=== PATIENT | female | born 1975 | race African-American/Black ===

== ENCOUNTER → 2018-08-29 | Emergency (ER) | payer OTHER ==
[~2018-08-29] MED LIST: ACETAMINOPHEN 1000 MG/100 ML VIAL (NON FORMULARY) IVPB ONE; ACETAMINOPHEN 500 MG TABLET (FP) PO ONE; ACETAMINOPHEN INJECTION 100 ML IVPB ONE; CEPHALEXIN MONOHYDRATE 500 MG CAPSULE (UD) ONE; CEPHALEXIN MONOHYDRATE 500 MG CAPSULE (UD) PO ONE; KETOROLAC TROMETHAMINE 30 MG/1 ML VIAL IVPUSH ONE
[2018-08-29 21:46] VITALS: BP 131/56; PULSE 56; TEMP 98.9; BMI 28.8
--- NOTE | 2018-08-29 21:48 | PDOC ---
Rapid Medical Evaluation Time Seen by Provider: 08/29/18 21:43 Medical Evaluation: Allergies Allergy/AdvReac Type Severity Reaction Status Date / Time No Known Allergies Allergy Verified 02/20/18 09:59 08/29/18 21:43 I have performed a brief in-person evaluation of this patient. The patient presents with a chief complaint of: Lower abd pain x 3 days. Seen in ED at [facility] and [facility] blood work and ua was normal. Was given pain meds and sent home. States pain getting worse. States she is on her menses and gets cramps but this is worse. +nausea. Taking motrin which does help but states meds cause her palpitations. S/p csection remotely. Last time sexually active 2 months ago. No h/o stds Pertinent physical exam findings:appears very uncomfortable in triage w/ diffuse ttp to lower abd I have ordered the following:labs The patient will proceed to the ED for further evaluation. Discharge Disposition - Diagnosis Abdominal pain Qualifiers: Abdominal location: lower abdomen, unspecified Qualified Code(s): R10.30 - Lower abdominal pain, unspecified - Referrals - Patient Instructions - Post Discharge Activity
[2018-08-29 22:13] LABS: BASO % 0.9 % (0-2.0); EOS % 0.5 % (0-4.5); HEMATOCRIT 28.9 % (32.4-45.2); HEMOGLOBIN 9.8 GM/dL (10.7-15.3); LYMPH % 10.6 % (8-40); MCH 27.7 pg (25.7-33.7); MCHC 33.9 g/dl (32.0-36.0); MEAN CELL VOLUME 81.9 fl (80-96); MEAN PLT VOLUME 8.5 fl (7.5-11.1); MONO % 5.8 % (3.8-10.2); NEUT % 82.2 % (42.8-82.8); PLATELET COUNT 258 K/MM3 (134-434); RBC 3.53 M/mm3 (3.60-5.2); RDW 16.5 % (11.6-15.6); WHITE BLOOD COUNT 8.9 K/mm3 (4.0-10.0)
[2018-08-29 22:48] LABS: ALBUMIN 3.3 g/dl (3.4-5.0); ALK PHOS 45 U/L (45-117); ANION GAP 9 MMOL/L (8-16); BLOOD UREA NITROGEN 12 mg/dL (7-18); CALCIUM 8.7 mg/dL (8.5-10.1); CHLORIDE 105 mmol/L (98-107); CO2 25 mmol/L (21-32); CREATININE 0.9 mg/dL (0.55-1.3); GLUCOSE,RANDOM 101 mg/dL (74-106); LIPASE 148 U/L (73-393); POTASSIUM 3.6 mmol/L (3.5-5.1); SGOT/AST 38 U/L (15-37); SGPT/ALT 58 U/L (13-61); SODIUM 139 mmol/L (136-145); TOT PROT 7.2 g/dl (6.4-8.2)
[2018-08-29 22:49] LABS: BILIRUBIN,TOTAL 0.2 mg/dL (0.2-1)
--- NOTE | 2018-08-29 23:10 | PDOC ---
History of Present Illness - General Chief Complaint: Pain Stated Complaint: STOMACH PAIN Time Seen by Provider: 08/29/18 21:43 History Source: Patient, Old Records Exam Limitations: No Limitations - History of Present Illness Initial Comments: HPI: 42 y/o female presenting to [facility] ER complaining of bilateral lower abdominal pain since Saturday (08/27/2018). Pain is in both lower quadrants without radiation to flanks or lower back. It was worse at onset. Endorses nausea without vomiting and decreased PO intake. Reports last BM was yesterday and has not passed flatus in interim. No h/o of STD, bowel obstruction, or similar symptoms. Was evaluated at a [facility] facility on Saturday. Pt reports she was worked up with blood work and an U/S and sent home with oxycodone. Pain improves with narcotic usage but returns. Started menstrual period yesterday. Prescribed 4 days of Oxycodone on 08/28/18 per [employer] DIRECTOR. PCP: Social Hx: - EtOH: Denies - Tobacco: Denies - Street Drugs: Denies Medical Hx: - Pt denies past medical history. Denies prescription medications. Surgical Hx: - approx. 20 years ago - Hysteroscopy and D/C (01/2018) Past History - Past Medical History Allergies/Adverse Reactions: Allergies Allergy/AdvReac Type Severity Reaction Status Date / Time No Known Allergies Allergy Verified 02/20/18 09:59 Home Medications: Ambulatory Orders Ibuprofen [Advil -] 600 mg PO PRN PRN 02/20/18 Tranexamic Acid 650 mg PO TID 02/20/18 metroNIDAZOLE [Flagyl -] 500 mg PO BID #14 tablet 02/21/18 Anemia: Yes Asthma: No Cancer: No Cardiac Disorders: No CVA: No COPD: No CHF: No Dementia: No Diabetes: No GI Disorders: No Disorders: No HTN: No Hypercholesterolemia: No Liver Disease: No Seizures: No Thyroid Disease: No - Suicide/Smoking/Psychosocial Hx Smoking History: Never smoked Hx Alcohol Use: No Drug/Substance Use Hx: No Substance Use Type: None Hx Substance Use Treatment: No Review of Systems - Review of Systems Able to Perform ROS?: Yes Comments:: In addition to that documented in the HPI above, the additional ROS was obtained : Constitutional: Denies fevers. Endorses chills Eyes: Denies vision changes ENMT: Denies sore throat CV: Denies chest pain Resp: Denies SOB GI: Denies vomiting or diarrhea. Endorses nausea. : Denies painful urination. Endorses vaginal bleeding. MSK: Denies recent trauma Skin: Denies new rashes Neuro: Denies new numbness or tingling or weakness Endocrine: Denies polyuria Heme: Denies bruising *Physical Exam - Vital Signs Last Vital Signs Temp Pulse Resp BP Pulse Ox 98.9 F 56 L 20 131/56 L 100 08/29/18 21:44 08/29/18 21:44 08/29/18 21:44 08/29/18 21:44 08/29/18 21:44 - Physical Exam Comments: Constitutional: Well-developed, well-nourished female in no acute distress but obvious discomfort. Found groaning in [facility] bed. Alert and oriented x4. Answered all questions appropriately and completely. Speech was non -labored, non-pressured. Head: Normocephalic. No obvious external signs of trauma. Eyes: PERRL. EOMI. Sclerae white. Conjunctiva moist and not injected. EARS: Hearing grossly intact. NOSE: No nasal discharge. THROAT: Oral cavity and pharynx normal. No inflammation, swelling, exudate, or lesions. Teeth and gingiva in good general condition. Neck: Supple, trachea is midline. Cardiovascular: Regular rate and regular rhythm. No murmur, rubs, clicks, or gallops. Peripheral pulses: Radial pulses full. Respiratory: Breathing unlabored. Equal chest rise and fall. Clear to auscultation bilaterally. No stridor, no wheezing, no rhonchi. Gastrointestinal: abdomen tender in RLQ and LLQ without rebound, guarding, or grimace. Globally, abdomen is soft and non-distended. No hepatosplenemegaly. No pulsatile masses. No overlying skin lesions or obvious signs of trauma. Neuro: Alert and oriented. Moving all four extremities spontaneously. Gait normal. Skin: Warm, dry, and intact. : No R or L CVA tenderness. Psych: Affect: appropriate. Mood: normal. Female Pelvic: External genitalia unremarkable. Speculum exam with 2-3cc blood in vaginal vault. Vaginal wall mucosa is unremarkable. Cervix visualized and is unremarkable (closed in appearance without any protruding material). Bimanual exam without cervical motion tenderness, adnexal tenderness or any masses appreciated. RN chaperoned exam. Moderate Sedation - Procedure Monitoring Vital Signs: Procedure Monitoring Vital Signs Temperature 98.9 F 08/29/18 21:44 Pulse Rate 56 L 08/29/18 21:44 Respiratory Rate 20 08/29/18 21:44 Blood Pressure 131/56 L 08/29/18 21:44 O2 Sat by Pulse Oximetry (%) 100 08/29/18 21:44 ED Treatment Course - LABORATORY CBC & Chemistry Diagram: 08/29/18 22:01 08/29/18 22:01 - ADDITIONAL ORDERS Additional order review: Laboratory Results 08/29/18 22:01 Sodium 139 Potassium 3.6 Chloride 105 Carbon Dioxide 25 Anion Gap 9 BUN 12 Creatinine 0.9 Creat Clearance w eGFR > 60 Random Glucose 101 Calcium 8.7 Total Bilirubin 0.2 AST 38 H ALT 58 Alkaline Phosphatase 45 Total Protein 7.2 Albumin 3.3 L Lipase 148 08/29/18 22:01 RBC 3.53 L MCV 81.9 MCHC 33.9 RDW 16.5 H MPV 8.5 Neutrophils % 82.2 D Lymphocytes % 10.6 D Monocytes % 5.8 Eosinophils % 0.5 D Basophils % 0.9 Medical Decision Making - Medical Decision Making *Reviewed vital signs, nursing notes, and prior visit documentation (if available). 42 y/o female complaining of three days of bilateral lower abdominal pain without radiation. Last BM yesterday. No flatus. H/o . Afebrile. Vitals unremarkable for hypotension or tachycardia. Physical exam as described above. No peritoneal signs. D/D: SBO (low suspicion), appendicitis, diverticulitis, mittelschmerz, , ectopic , ovarian torsion, PID, cystitis, salpingitis, uterine fibroids, or ovarian cyst. Will obtain CT with PO contrast given reported normal U/S on Saturday. Pt continuously requesting IV pain medication stronger than PO Tylenol. Ordered IV Tylenol. Will withhold narcotics in setting of no BM until CT scan is performed. UPreg negative. CBC revealed mild anemia, but above [facility] Suspect secondary to menstrual bleeding. CMP and Lipase unremarkable for derangement. 23:48 Pt signed out to resident Dr. Smith after she was verbally appraised of the pts HPI, current ED course, and plan of management. Will follow up on UA and CT of Abdomen and Pelvis. *DC/Admit/Observation/Transfer Diagnosis at time of Disposition: Abdominal pain Qualifiers: Abdominal location: lower abdomen, unspecified Qualified Code(s): R10.30 - Lower abdominal pain, unspecified - Discharge Dispostion Condition at time of disposition: Stable - Referrals - Patient Instructions - Post Discharge Activity
--- NOTE | 2018-08-29 23:25 | PDOC ---
Attending Attestation - HPI HPI: 08/29/18 23:45 The patient is a 42 year old female, with a significant past medical history of high blood pressure and anemia, who presents to the emergency department with complaint of bilateral lower abdominal pain since Saturday. She states she was recently seen at [facility] for similar complaint of pain and had a normal work up including blood, urine, and US. The patient denies chest pain, shortness of breath, headache and dizziness. The patient denies fever, chills, nausea, vomit, diarrhea and constipation. The patient denies dysuria, frequency, urgency and hematuria. Allergies: NKDA Documentation prepared by Annette Moran, acting as medical research assistant for Rajesh Larsen MD <Annette Moran - Last Filed: 08/29/18 23:45> - Resident Resident Name: Amarjit Zendejas - ED Attending Attestation I have performed the following: I have examined & evaluated the patient, The case was reviewed & discussed with the resident, I agree w/resident's findings & plan, Exceptions are as noted - Physicial Exam PE: 08/30/18 00:00 Patient is awake and alert, well-nourished, well-appearing, in mild distress Normocephalic and atraumatic PERRLA, EOMI, no scleral icterus CTA RRR Abdomen is soft, nondistended, minimal bilateral lower pelvic tenderness to deep palpation without guarding rebound, no CVA tenderness bilaterally no lower extremity edema No focal neurological deficits - Medical Decision Making 08/30/18 00:01 42-year-old female who presents with atraumatic bilateral lower abdominal pain since he with constipation and obstipation. In the ER, patient is afebrile and nontoxic appearing. Patient been evaluated at [facility] for similar complaints underwent an negative ultrasound was prescribed Percocets which provided temporary relief only. We'll obtain CBC/CMP/UA. Will obtain CT of abdomen and pelvis with by mouth contrast. Will reassess. <Rajesh Larsen - Last Filed: 08/30/18 00:02>
[2018-08-29 23:36] LABS: HCG,QUALITATIVE URINE Negative
[2018-08-30 00:06] LABS: URINE APPEARANCE CLOUDY; URINE BILIRUBIN NEGATIVE (<2.0 mg/dL); URINE COLOR RED; URINE GLUCOSE (UA) NEGATIVE (NEGATIVE); URINE KETONE NEGATIVE (NEGATIVE); URINE LEUK ESTERASE TRACE (NEGATIVE); URINE NITRITE NEGATIVE (NEGATIVE); URINE PROTEIN 2+ (NEGATIVE); URINE UROBILINOGEN NEGATIVE mg/dL (0.2-1.0)
[2018-08-30 00:29] LABS: URINE MUCUS FEW
--- NOTE | 2018-08-30 00:38 | PDOC ---
*Physical Exam - Vital Signs Last Vital Signs Temp Pulse Resp BP Pulse Ox 98.9 F 56 L 20 131/56 L 100 08/29/18 21:44 08/29/18 21:44 08/29/18 21:44 08/29/18 21:44 08/29/18 21:44 ED Treatment Course - LABORATORY CBC & Chemistry Diagram: 08/29/18 22:01 08/29/18 22:01 - ADDITIONAL ORDERS Additional order review: Laboratory Results 08/29/18 08/29/18 23:20 22:01 Sodium 139 Potassium 3.6 Chloride 105 Carbon Dioxide 25 Anion Gap 9 BUN 12 Creatinine 0.9 Creat Clearance w eGFR > 60 Random Glucose 101 Calcium 8.7 Total Bilirubin 0.2 AST 38 H ALT 58 Alkaline Phosphatase 45 Total Protein 7.2 Albumin 3.3 L Lipase 148 Urine Color Red Urine Appearance Cloudy Urine pH 6.0 Ur Specific [place] 1.027 Urine Protein 2+ H Urine Glucose (UA) Negative Urine Ketones Negative Urine Blood 3+ H Urine Nitrite Negative Urine Bilirubin Negative Urine Urobilinogen Negative Ur Leukocyte Esterase Trace Urine WBC (Auto) 428 Urine RBC (Auto) 1937 Urine Mucus Few Urine HCG, Qual Negative 08/29/18 22:01 RBC 3.53 L MCV 81.9 MCHC 33.9 RDW 16.5 H MPV 8.5 Neutrophils % 82.2 D Lymphocytes % 10.6 D Monocytes % 5.8 Eosinophils % 0.5 D Basophils % 0.9 - Medications Given in the ED: ED Medications Discontinued Medications Generic Name Dose Route Start Last Admin Trade Name Freq PRN Reason Stop Dose Admin Acetaminophen 975 mg 08/29/18 23:33 08/30/18 00:15 Tylenol - PO 08/29/18 23:34 Not Given ONCE ONE Acetaminophen 1,000 mg 08/29/18 23:39 08/30/18 00:14 Ofirmev Injection - IVPB 08/29/18 23:40 1,000 mg ONCE ONE Administration Medical Decision Making - Medical Decision Making 08/30/18 00:35 This patient was signed out to me by Dr. Zendejas. 42 year old female presented to ED for abdominal pain. Initial Vital Signs Temp Pulse Resp BP Pulse Ox 98.9 F 56 L 20 131/56 L 100 08/29/18 21:44 08/29/18 21:44 08/29/18 21:44 08/29/18 21:44 08/29/18 21:44 Afebrile. Mild bradycardia. No tachypnea. Mild systolic hypertension and diastolic hypotension. No hypoxia on room air. Medications ordered: IV tylenol CBC WBC 8.9 K/mm3 (4.0-10.0) 08/29/18 22:01 RBC 3.53 M/mm3 (3.60-5.2) L 08/29/18 22:01 Hgb 9.8 GM/dL (10.7-15.3) L 08/29/18 22:01 Hct 28.9 % (32.4-45.2) L 08/29/18 22:01 MCV 81.9 fl (80-96) 08/29/18 22:01 MCH 27.7 pg (25.7-33.7) D 08/29/18 22:01 MCHC 33.9 g/dl (32.0-36.0) 08/29/18 22:01 RDW 16.5 % (11.6-15.6) H 08/29/18 22:01 Plt Count 258 K/MM3 (134-434) 08/29/18 22:01 MPV 8.5 fl (7.5-11.1) 08/29/18 22:01 Absolute Neuts (auto) 7.3 K/mm3 (1.5-8.0) 08/29/18 22:01 Neutrophils % 82.2 % (42.8-82.8) D 08/29/18 22:01 Lymphocytes % 10.6 % (8-40) D 08/29/18 22:01 Monocytes % 5.8 % (3.8-10.2) 08/29/18 22:01 Eosinophils % 0.5 % (0-4.5) D 08/29/18 22:01 Basophils % 0.9 % (0-2.0) 08/29/18 22:01 Nucleated RBC % 0 % (0-0) 08/29/18 22:01 No leukocytosis. Mild anemia, hx of same. CMP Sodium 139 mmol/L (136-145) 08/29/18 22:01 Potassium 3.6 mmol/L (3.5-5.1) 08/29/18 22:01 Chloride 105 mmol/L (98-107) 08/29/18 22:01 Carbon Dioxide 25 mmol/L (21-32) 08/29/18 22:01 Anion Gap 9 MMOL/L (8-16) 08/29/18 22:01 BUN 12 mg/dL (7-18) 08/29/18 22:01 Creatinine 0.9 mg/dL (0.55-1.3) 08/29/18 22:01 Creat Clearance w eGFR > 60 (>60) 08/29/18 22:01 Random Glucose 101 mg/dL (74-106) 08/29/18 22:01 Calcium 8.7 mg/dL (8.5-10.1) 08/29/18 22:01 Total Bilirubin 0.2 mg/dL (0.2-1) 08/29/18 22:01 AST 38 U/L (15-37) H 08/29/18 22:01 ALT 58 U/L (13-61) 08/29/18 22:01 Alkaline Phosphatase 45 U/L (45-117) 08/29/18 22:01 Total Protein 7.2 g/dl (6.4-8.2) 08/29/18 22:01 Albumin 3.3 g/dl (3.4-5.0) L 08/29/18 22:01 Lipase 148 U/L (73-393) 08/29/18 22:01 No electrolyte abnormalities. No KATY. No transaminitis. Normal lipase. Urine Test Results Urine Color Red 08/29/18 23:20 Urine Appearance Cloudy 08/29/18 23:20 Urine pH 6.0 (5.0-8.0) 08/29/18 23:20 Ur Specific [place] 1.027 (1.010-1.035) 08/29/18 23:20 Urine Protein 2+ (NEGATIVE) H 08/29/18 23:20 Urine Glucose (UA) Negative (NEGATIVE) 08/29/18 23:20 Urine Ketones Negative (NEGATIVE) 08/29/18 23:20 Urine Blood 3+ (NEGATIVE) H 08/29/18 23:20 Urine Nitrite Negative (NEGATIVE) 08/29/18 23:20 Urine Bilirubin Negative (<2.0 mg/dL) 08/29/18 23:20 Ur Leukocyte Esterase Trace (NEGATIVE) 08/29/18 23:20 Urine Mucus Few 08/29/18 23:20 3+ blood in urine - Pt is on her menstrual period WBC>5 Pt has UTI. - Keflex ordered 08/30/18 04:19 CT report: left ovarian cyst. otherwise normal. Pt to be discharged with Keflex. 08/30/18 04:21 Pt is requesting IV tylenol. - Above ordered. Pt reported she was told about her ovarian cyst last at [facility], was told it was small. 08/30/18 05:50 Pt reported she would like to go home. Pt discharged. *DC/Admit/Observation/Transfer Diagnosis at time of Disposition: Urinary tract infection Abdominal pain Qualifiers: Abdominal location: lower abdomen, unspecified Qualified Code(s): R10.30 - Lower abdominal pain, unspecified - Discharge Dispostion Disposition: HOME Condition at time of disposition: Stable Decision to Admit order: No - Prescriptions Prescriptions: Cephalexin Monohydrate [Keflex -] 500 mg PO BID #13 capsule - Referrals - Patient Instructions Additional Instructions: You were seen today for abdominal pain. You have a urinary tract infection. I have sent a prescription to your pharmacy for antibiotics. Pick it up as soon as possible and take as advised on label. Do not miss any doses. Take tylenol 1000 mg three times a day over the counter as needed for your pain. Follow up with a primary care doctor in 1-3 days. I have included referrals for primary care doctors should you need one. Return to the Emergency Department for increasing pain, fever>102F, fever>5 days, chest pain, shortness of breath, or any other new, worsening or concerning symptoms. - Post Discharge Activity Forms/Work/School Notes: Back to Work
--- NOTE | 2018-08-30 03:55 | PDOC ---
*Physical Exam - Vital Signs Last Vital Signs Temp Pulse Resp BP Pulse Ox 98.9 F 56 L 20 131/56 L 100 08/29/18 21:44 08/29/18 21:44 08/29/18 21:44 08/29/18 21:44 08/29/18 21:44 ED Treatment Course - LABORATORY CBC & Chemistry Diagram: 08/29/18 22:01 08/29/18 22:01 - ADDITIONAL ORDERS Additional order review: Laboratory Results 08/29/18 08/29/18 23:20 22:01 Sodium 139 Potassium 3.6 Chloride 105 Carbon Dioxide 25 Anion Gap 9 BUN 12 Creatinine 0.9 Creat Clearance w eGFR > 60 Random Glucose 101 Calcium 8.7 Total Bilirubin 0.2 AST 38 H ALT 58 Alkaline Phosphatase 45 Total Protein 7.2 Albumin 3.3 L Lipase 148 Urine Color Red Urine Appearance Cloudy Urine pH 6.0 Ur Specific [place] 1.027 Urine Protein 2+ H Urine Glucose (UA) Negative Urine Ketones Negative Urine Blood 3+ H Urine Nitrite Negative Urine Bilirubin Negative Urine Urobilinogen Negative Ur Leukocyte Esterase Trace Urine WBC (Auto) 428 Urine RBC (Auto) 1937 Urine Mucus Few Urine HCG, Qual Negative 08/29/18 22:01 RBC 3.53 L MCV 81.9 MCHC 33.9 RDW 16.5 H MPV 8.5 Neutrophils % 82.2 D Lymphocytes % 10.6 D Monocytes % 5.8 Eosinophils % 0.5 D Basophils % 0.9 - Medications Given in the ED: ED Medications Discontinued Medications Generic Name Dose Route Start Last Admin Trade Name Benjiq PRN Reason Stop Dose Admin Acetaminophen 975 mg 08/29/18 23:33 08/30/18 00:15 Tylenol - PO 08/29/18 23:34 Not Given ONCE ONE Acetaminophen 1,000 mg 08/29/18 23:39 08/30/18 00:14 Ofirmev Injection - IVPB 08/29/18 23:40 1,000 mg ONCE ONE Administration Cephalexin HCl 500 mg 08/30/18 00:38 08/30/18 01:26 Keflex - PO 08/30/18 00:39 500 mg ONCE ONE Administration Medical Decision Making - Medical Decision Making 08/30/18 03:53 I received signout on patient; she originally came with lower abd pain; testing in the ER reveals UTI; she has diffuse tenderness, so a CT scan had been ordered. If normal, she will be sent home with abx for her UTI; Pt is stable at this time. Awaiting CT results. 08/30/18 05:51 THIS IS A PRELIMINARY REPORT FROM [employer] [employer] OPERATOR DATE OF SERVICE: 2018-08-30 03:33:49 IMAGES: [id number] EXAM: CT ABDOMEN \T\ PELVIS CT W/O CONTR HISTORY: Abdominal pain COMPARISON: None. FINDINGS: Abdomen Liver: Normal Spleen: Normal Pancreas: Normal CONFIDENTIALITY NOTICE: This information is intended only for the use of the recipient(s) named above. If you are not the intended recipient, or a person responsible for delivering it to the intended recipient, you are hereby notified that any disclosure, copying, distribution or use of any of the information contained in or attached to this transmission is STRICTLY PROHIBITED. If you have received this transmission in error, please immediately notify [employer] and destroy the original transmission and its attachments without saving them in any manner [address] [facility] [address] [place] [address] Phone: [phone] Fax: Email: [email or web address] Patient Information: : 1975 Order Type: Preliminary Name: LINWOOD DE Sex: F Study Description: CT ABDOMEN AND PELVIS Modality: CT Location: [facility] Referring Physician: BISHOP LANGSTON Gallbladder: Normal Stomach: Normal Small bowel: Normal Large bowel: Normal Appendix: Normal Adrenals:Normal Kidneys: Normal Vascular: Normal Lymphatic: Normal Peritoneal: No free peritoneal air or fluid Pelvis: Uterus: Normal Adnexa: There is a 3.3 cm left adnexal cystic structure Rectum: Normal Bladder: Normal The inferior thorax: Normal General: Skeletal: Normal Abdominal wall: Normal IMPRESSION: Left adnexal cyst is likely ovarian in origin. Correlation with history and pelvic exam is recommended *DC/Admit/Observation/Transfer Diagnosis at time of Disposition: Urinary tract infection Abdominal pain Qualifiers: Abdominal location: lower abdomen, unspecified Qualified Code(s): R10.30 - Lower abdominal pain, unspecified - Discharge Dispostion Disposition: HOME Condition at time of disposition: Stable - Prescriptions Prescriptions: Cephalexin Monohydrate [Keflex -] 500 mg PO BID #13 capsule - Referrals - Patient Instructions Additional Instructions: You were seen today for abdominal pain. You have a urinary tract infection. I have sent a prescription to your pharmacy for antibiotics. Pick it up as soon as possible and take as advised on label. Do not miss any doses. Take tylenol 1000 mg three times a day over the counter as needed for your pain. Follow up with a primary care doctor in 1-3 days. I have included referrals for primary care doctors should you need one. Return to the Emergency Department for increasing pain, fever>102F, fever>5 days, chest pain, shortness of breath, or any other new, worsening or concerning symptoms. - Post Discharge Activity Forms/Work/School Notes: Back to Work
== END | disposition home or self-care (01) ==
LOC: JER 21:40
PROC: 3E033NZ Introduction of Analgesics, Hypnotics, Sedatives into Peripheral Vein, Percutaneous Approach (ICD-10-PCS; principal; 2018-08-29)
DX: N39.0 Urinary tract infection, site not specified (principal); N83.202 Unspecified ovarian cyst, left side
CPT/HCPCS: 36415; 74176-TC; 80053; 81003; 81015; 83690; 84703; 85025; 87086; 99282-25; J0131

== ENCOUNTER 2019-02-04 09:48 | Emergency (ER) | payer OTHER | END 2019-02-04 15:47 | disposition home or self-care (01) | LOC: JER 09:48 ==

== ENCOUNTER → 2019-03-20 | Day surgery (SDC) | payer OTHER | LOC: JASU-SURG 07:27 ==

== ENCOUNTER 2020-08-17 10:40 | Observation (INO) | payer OTHER ==
[2020-08-17 12:21] LABS: BASO % 0.6 % (0-2.0); EOS % 0.7 % (0-4.5); HEMATOCRIT 19.3 % (32.4-45.2); LYMPH % 24.4 % (8-40); MCH 25.7 pg (25.7-33.7); MCHC 31.9 g/dl (32.0-36.0); MEAN CELL VOLUME 80.5 fl (80-96); MEAN PLT VOLUME 8.1 fl (7.5-11.1); MONO % 4.8 % (3.8-10.2); NEUT % 69.5 % (42.8-82.8); PLATELET COUNT 309 K/MM3 (134-434); WHITE BLOOD COUNT 7.1 K/mm3 (4.0-10.0)
[2020-08-17 12:24] LABS: HEMOGLOBIN 6.1 GM/dL (10.7-15.3)
[2020-08-17 12:27] LABS: INR 0.94 (0.83-1.09); PROTHROMBIN TIME (PATIENT) 11.6 SEC (9.7-13.0)
[2020-08-17 12:30] LABS: ACTIVATED PTT 25.2 SECONDS (25.2-36.5)
[2020-08-17 12:31] LABS: POTASSIUM 5.3 mmol/L (3.5-5.1)
[2020-08-17 12:33] LABS: CALCIUM 8.6 mg/dL (8.5-10.1)
[2020-08-17 12:34] LABS: ALBUMIN 3.4 g/dl (3.4-5.0); BLOOD UREA NITROGEN 7.9 mg/dL (7-18)
[2020-08-17 12:37] LABS: CREATININE 0.8 mg/dL (0.55-1.3)
[2020-08-17 12:39] LABS: BILIRUBIN,TOTAL 0.3 mg/dL (0.2-1); TOT PROT 7.4 g/dl (6.4-8.2)
[2020-08-17] MEDS ORDERED: SODIUM CHLORIDE 1,000 ML IV STA (15:53)
[2020-08-17] MEDS ORDERED: ACETAMINOPHEN 325 MG TABLET (FP) ONE (18:31)
[2020-08-17] MEDS: ACETAMINOPHEN 325 MG TABLET (FP) PO PRN (18:38)
[2020-08-17 21:30] LABS: HEMATOCRIT 28.2 % (32.4-45.2); HEMOGLOBIN 9.4 GM/dL (10.7-15.3); MCH 27.9 pg (25.7-33.7); MCHC 33.3 g/dl (32.0-36.0); MEAN CELL VOLUME 83.7 fl (80-96); PLATELET COUNT 280 K/MM3 (134-434); RBC 3.37 M/mm3 (3.60-5.2); RDW 18.1 % (11.6-15.6); WHITE BLOOD COUNT 8.3 K/mm3 (4.0-10.0)
[2020-08-18 00:37] VITALS: BMI 29.0
[2020-08-18] MEDS: ACETAMINOPHEN 325 MG TABLET (FP) PO PRN (06:39)
[2020-08-18 08:18] LABS: BASO % 1.1 % (0-2.0); EOS % 1.8 % (0-4.5); HEMATOCRIT 27.6 % (32.4-45.2); HEMOGLOBIN 9.2 GM/dL (10.7-15.3); LYMPH % 33.7 % (8-40); MCH 27.7 pg (25.7-33.7); MCHC 33.4 g/dl (32.0-36.0); MEAN CELL VOLUME 82.8 fl (80-96); MEAN PLT VOLUME 8.5 fl (7.5-11.1); NEUT % 56.4 % (42.8-82.8); PLATELET COUNT 286 K/MM3 (134-434); RBC 3.34 M/mm3 (3.60-5.2); RDW 17.8 % (11.6-15.6); WHITE BLOOD COUNT 8.3 K/mm3 (4.0-10.0)
[2020-08-18 08:37] LABS: POTASSIUM 4.1 mmol/L (3.5-5.1)
[2020-08-18 08:51] LABS: ALBUMIN 3.3 g/dl (3.4-5.0); CALCIUM 8.6 mg/dL (8.5-10.1)
[2020-08-18 08:53] LABS: BLOOD UREA NITROGEN 7.1 mg/dL (7-18)
[2020-08-18 08:54] LABS: BILIRUBIN,TOTAL 0.4 mg/dL (0.2-1); CREATININE 0.8 mg/dL (0.55-1.3)
[2020-08-18 08:56] LABS: TOT PROT 6.8 g/dl (6.4-8.2)
[2020-08-18] MEDS ORDERED: IRON SUCROSE INJECTION 300 MG in SODIUM CHLORIDE 235 ML IVPB ONE (09:45)
[2020-08-18 14:00] VITALS: BP 104/54; PULSE 73; TEMP 98.6
[2020-08-18 14:54] LABS: EPI CELLS 24 /uL (0-25.1); HYALINE CASTS 2 /uL (0-3.1); PH,URINE 5.5 (5.0-8.0); URINE APPEARANCE CLOUDY; URINE BACTERIA 175 /uL (0-1359); URINE BILIRUBIN NEGATIVE (NEGATIVE); URINE COLOR YELLOW; URINE GLUCOSE (UA) NEGATIVE (NEGATIVE); URINE KETONE TRACE (NEGATIVE); URINE LEUK ESTERASE TRACE (NEGATIVE); URINE NITRITE NEGATIVE (NEGATIVE); URINE PROTEIN 1+ (NEGATIVE); URINE RBC 4812 /uL (0-23.9); URINE WBC 51 /uL (0-25.8)
== END 2020-08-18 14:30 | disposition home or self-care (01) ==
LOC: JER 10:40 → INTOOBSV 14:31 → JERBED 14:31 → J7W 21:26
PROVIDERS: ATTEND Student in an Organized Health Care Education/Training Program
PROC: 3E033GC Introduction of Other Therapeutic Substance into Peripheral Vein, Percutaneous Approach (ICD-10-PCS; principal; 2020-08-17)
PROC: 3E0337Z Introduction of Electrolytic and Water Balance Substance into Peripheral Vein, Percutaneous Approach (ICD-10-PCS; 2020-08-17)
PROC: 30283B1 Transfusion of Nonautologous 4-Factor Prothrombin Complex Concentrate into Vein, Percutaneous Approach (ICD-10-PCS; 2020-08-17)
DX: D64.9 Anemia, unspecified (principal); R79.89 Other specified abnormal findings of blood chemistry; D25.9 Leiomyoma of uterus, unspecified; D50.9 Iron deficiency anemia, unspecified; I10 Essential (primary) hypertension; E78.5 Hyperlipidemia, unspecified; N92.0 Excessive and frequent menstruation with regular cycle; R42 Dizziness and giddiness; R30.0 Dysuria
CPT/HCPCS: 36415; 36430; 80053; 81003; 82728; 82962; 83540; 83550; 84703; 85025; 85027; 85610; 85730; 86850; 86900; 86901; 86922; 99285-25; C9803; G0378; J1756; P9058; U0003

== ENCOUNTER 2020-08-22 05:38 | Day surgery (SDC) | payer OTHER ==
[2020-08-17 14:03] VITALS: BMI 27.3
[2020-08-22 12:05] LABS: HEMATOCRIT 28.9 % (32.4-45.2); HEMOGLOBIN 9.2 GM/dL (10.7-15.3); MCH 26.9 pg (25.7-33.7); MCHC 31.9 g/dl (32.0-36.0); MEAN CELL VOLUME 84.5 fl (80-96); PLATELET COUNT 302 K/MM3 (134-434); RBC 3.42 M/mm3 (3.60-5.2); WHITE BLOOD COUNT 4.8 K/mm3 (4.0-10.0)
[2020-08-22] MEDS ORDERED: PROPOFOL 20 ML ONE (13:25)
[2020-08-22] MEDS ORDERED: MIDAZOLAM HCL 2 MG/2 ML SINGLE DOSE VIAL ONE (13:25)
[2020-08-22] MEDS ORDERED: ONDANSETRON 4 MG/2 ML VIAL IVPUSH PRN (13:54)
[2020-08-22] MEDS ORDERED: oxyCODONE HCL 5 MG TABLET PO PRN ×2 (13:54)
[2020-08-22] MEDS ORDERED: LACTATED RINGERS SOLUTION 1,000 ML IV SCH (14:00)
[2020-08-22] MEDS ORDERED: ceFAZolin 2 GRAM PREMIX BAG IVPB ONE (14:25)
[2020-08-22] MEDS ORDERED: KETOROLAC TROMETHAMINE 30 MG/1 ML VIAL ONE (14:38)
[2020-08-22] MEDS ORDERED: ceFAZolin SODIUM 1 GM VIAL ONE (14:38)
[2020-08-23 06:10] VITALS: BP 136/86; PULSE 65; TEMP 97.5
== END 2020-08-22 18:40 | disposition home or self-care (01) ==
LOC: JASU-SURG 05:38
PROVIDERS: ATTEND Obstetrics & Gynecology
PROC: 0UDB7ZX Extraction of Endometrium, Via Natural or Artificial Opening, Diagnostic (ICD-10-PCS; principal; 2020-08-22 12:30)
PROC: 0UJD8ZZ Inspection of Uterus and Cervix, Via Natural or Artificial Opening Endoscopic (ICD-10-PCS; 2020-08-22 12:30)
DX: N92.1 Excessive and frequent menstruation with irregular cycle (principal); D25.9 Leiomyoma of uterus, unspecified; D64.9 Anemia, unspecified
CPT/HCPCS: 36415; 84703; 85027; 88305-TC; 94760

== ENCOUNTER 2023-08-05 04:36 | Day surgery (SDC) | payer OTHER ==
[2023-08-01 13:13] VITALS: BMI 30.4
[2023-08-05] MEDS ORDERED: FENTANYL CITRATE/PF 50 MCG/ML VIAL ONE ×3 (10:29→13:02)
[2023-08-05] MEDS ORDERED: PROPOFOL 40 ML ONE (10:30)
[2023-08-05] MEDS: CLINDAMYCIN 900 MG PREMIX BAG IVPB ONE (10:53)
[2023-08-05] MEDS ORDERED: ONDANSETRON 4 MG/2 ML VIAL ONE (11:20)
[2023-08-05] MEDS ORDERED: KETOROLAC TROMETHAMINE 30 MG/1 ML VIAL ONE (11:20)
[2023-08-05] MEDS ORDERED: CLINDAMYCIN PHOSPHATE 600 MG/4 ML VIAL ONE (11:21)
[2023-08-05] MEDS ORDERED: DEXAMETHASONE SOD PHOSPHATE 4 MG/1 ML VIAL ONE (11:21)
[2023-08-05] MEDS ORDERED: CLINDAMYCIN 600MG PREMIX IVPB 600 MG/50 ML BAG IVPB ONE (11:21)
[2023-08-05] MEDS ORDERED: oxyCODONE HCL 5 MG TABLET PO PRN (12:25)
[2023-08-05] MEDS ORDERED: ONDANSETRON 4 MG/2 ML VIAL IVPUSH PRN (12:25)
[2023-08-05] MEDS ORDERED: LACTATED RINGERS SOLUTION 1,000 ML IV SCH (12:30)
[2023-08-05] MEDS: ACETAMINOPHEN 1000 MG/100 ML BAG IVPB ONE ×2 (14:04→15:02)
[2023-08-05] MEDS: LABETALOL HCL 5 MG/1 ML (100MG/20 ML VIAL) IVPUSH ONE ×2 (14:24→15:02)
[2023-08-05 17:53] VITALS: BP 146/86; PULSE 78; RESP 20; TEMP 97.8
== END 2023-08-05 18:30 | disposition home or self-care (01) ==
LOC: JASU-SURG 04:36
PROVIDERS: ATTEND Obstetrics & Gynecology
PROC: 0U5B8ZZ Destruction of Endometrium, Via Natural or Artificial Opening Endoscopic (ICD-10-PCS; principal; 2023-08-05 10:00)
DX: N92.1 Excessive and frequent menstruation with irregular cycle (principal); D25.9 Leiomyoma of uterus, unspecified
CPT/HCPCS: 81025; 86850; 86900; 86901; 88305-TC; 94760; J0131